=== PATIENT | male | born 1965 | race Caucasian/White ===

== ENCOUNTER 2019-01-13 19:47 | Emergency (ER) | payer BC ==
[2019-01-13] MEDS ORDERED: FENTANYL CITRATE INJ/PF 100 MCG/2 ML AMPUL IV ONE (20:58)
--- NOTE | 2019-01-13 21:06 | ER Document Report ---
ED Medical Screen (RME) - General Chief Complaint: Wound Infection Stated Complaint: POSSIBLE INFECTION AT SURGERY SITE Time Seen by Provider: 01/13/19 20:43 Notes: Patient is a 53-year-old male who presents the emergency department with a conc mehrdad for his surgery sites. On January 02 the patient underwent an aortic aneurysm occlusion surgery at [facility] in which they cleared the occlusion. He also had bilateral femoral and right lower leg occlusions. Patient had stents placed and he is currently on Xarelto. Son, who has been taking care of his wounds state that they feel warm and seem like they are not healing well. The patient is a diabetic. States he has had some chills. Exam: Erythema noted to postop site of right anterior medial lower leg. Unable to visualize patient's bilateral groin surgery sites, as the patient is morbidly obese and in the sitting position. I have greeted and performed a rapid initial assessment of this patient. A comprehensive ED assessment and evaluation of the patient, analysis of test results and completion of medical decision making process will be conducted by an additional ED providers. TRAVEL OUTSIDE OF THE [place] IN LAST 30 DAYS: No - Related Data Allergies/Adverse Reactions: Sulfa (Sulfonamide Antibiotics) Allergy (Verified 01/13/19 20:49) Past Medical History - Social History Chew tobacco use (# tins/day): No Frequency of alcohol use: Rare Drug Abuse: None Endocrine Medical History: Reports: Hx Diabetes Mellitus Type 2 Renal/ Medical History: Denies: Hx Peritoneal Dialysis Past Surgical History: Reports: Hx Appendectomy, Hx Cardiac Catheterization, Hx Cardiac Surgery, Hx Orthopedic Surgery Physical Exam - Vital signs Vitals: Temp Pulse Resp BP Pulse Ox 97.8 F 88 20 115/67 97 01/13/19 20:13 01/13/19 20:13 01/13/19 20:13 01/13/19 20:13 01/13/19 20:13 Course - Vital Signs Vital signs: Temp Pulse Resp BP Pulse Ox 97.8 F 88 20 115/67 97 01/13/19 20:13 01/13/19 20:13 01/13/19 20:13 01/13/19 20:13 01/13/19 20:13
[2019-01-13 21:11] LABS: ABSOLUTE BASOPHILS # (AUTO) 0.2 10^3/uL (0.0-0.2); ABSOLUTE EOSINOPHILS # (AUTO) 0.3 10^3/uL (0.0-0.6); ABSOLUTE LYMPHOCYTES (AUTO) 2.5 10^3/uL (0.5-4.7); ABSOLUTE MONOCYTES (AUTO) 0.7 10^3/uL (0.1-1.4); ABSOLUTE NEUT (AUTO) 9.7 10^3/uL (1.7-8.2); BASOPHILS % (AUTO) 1.2 % (0-2); EOSINOPHILS % (AUTO) 2.5 % (0-6); HEMOGLOBIN 12.6 g/dL (13.5-17.0); LYMPHOCYTES % (AUTO) 18.8 % (13-45); MEAN CORPUSCULAR HEMOGLOBIN 30.9 pg (27.0-33.4); MEAN CORPUSCULAR HGB CONC 34.1 g/dL (32.0-36.0); MEAN CORPUSCULAR VOLUME 91 fl (80-97); PLATELET COUNT 350 10^3/uL (150-450); RED BLOOD COUNT 4.08 10^6/uL (4.35-5.55); SEGMENTED NEUTROPHILS % (AUTO) 72.5 % (42-78); TOTAL CELLS COUNTED % (AUTO) 100 %; WHITE BLOOD COUNT 13.4 10^3/uL (4.0-10.5)
[2019-01-13 21:33] LABS: ALANINE AMINOTRANSFERASE 34 U/L (21-72); ALBUMIN 3.4 g/dL (3.5-5.0); ALKALINE PHOSPHATASE 102 U/L (38-126); ANION GAP 11 (5-19); ASPARTATE AMINO TRANSFERASE 31 U/L (17-59); BILIRUBIN,DIRECT 0.3 mg/dL (0.0-0.4); BILIRUBIN,TOTAL 0.6 mg/dL (0.2-1.3); BLOOD UREA NITROGEN 10 mg/dL (7-20); CALCIUM 9.2 mg/dL (8.4-10.2); CARBON DIOXIDE 20 mmol/L (22-30); CHLORIDE 105 mmol/L (98-107); GLUCOSE 115 mg/dL (75-110); POTASSIUM 4.9 mmol/L (3.6-5.0); TOTAL PROTEIN 7.6 g/dL (6.3-8.2)
--- NOTE | 2019-01-13 23:39 | ER Document Report ---
Addendum entered and electronically signed by JAE HERNANDEZ NP 01/14/19 07:43: Course - Re-evaluation Re-evalutation: 01/14/19 07:42 introduced to patient by torrey hernandez. pt is resting calmly. he was updated on plan of care. waiting on transport team. dilaudid ordered for pain control. - Vital Signs Vital signs: Temp Pulse Resp BP Pulse Ox 98.7 F 88 18 113/67 99 01/14/19 06:16 01/13/19 20:13 01/14/19 07:06 01/14/19 07:06 01/14/19 07:06 - Laboratory Result Diagrams: 01/13/19 21:00 01/13/19 21:00 Laboratory results interpreted by me: 01/13/19 01/13/19 21:00 21:00 WBC 13.4 H RBC 4.08 L Hgb 12.6 L Hct 37.0 L Absolute Neutrophils 9.7 H Sodium 136.3 L Carbon Dioxide 20 L Glucose 115 H Albumin 3.4 L Addendum entered and electronically signed by TORREY HERNANDEZ NP 01/14/19 07:36: Course - Re-evaluation Re-evalutation: 01/14/19 07:36 Patient was reevaluated. Patient sitting up at the side of the bed. Patient h as no acute complaints at this time. Patient is currently awaiting transport, they are estimated to be here at 8:00 this morning. I did do a bedside introduction to my oncoming shift, Gavi Hernandez in case the patient has any needs prior to his departure. At this time he is stable for transport. - Vital Signs Vital signs: Temp Pulse Resp BP Pulse Ox 98.7 F 88 18 113/67 99 01/14/19 06:16 01/13/19 20:13 01/14/19 07:06 01/14/19 07:06 01/14/19 07:06 - Laboratory Result Diagrams: 01/13/19 21:00 01/13/19 21:00 Laboratory results interpreted by me: 01/13/19 01/13/19 21:00 21:00 WBC 13.4 H RBC 4.08 L Hgb 12.6 L Hct 37.0 L Absolute Neutrophils 9.7 H Sodium 136.3 L Carbon Dioxide 20 L Glucose 115 H Albumin 3.4 L Original Note: ED Wound - General Chief Complaint: Wound Infection Stated Complaint: POSSIBLE INFECTION AT SURGERY SITE Time Seen by Provider: 01/13/19 20:43 Mode of Arrival: Wheelchair Information source: Patient, Relative - Son Notes: Patient is a 53-year-old male presents emergency department with chief complaint of possible surgical wound infection. Patient reports he had a repair done to his aorta on 01/02/2019. He reports he had a blockage in the lower part of his aorta as well as bilateral clots to both legs and in the arteries. He states he was discharged from [facility] on 01/08/2019. He states that in the last 48 hours he has had increased drainage with a foul smell from the incisions and he also reports that all sutures have opened up. He denies any fevers, nausea, vomiting, chills. TRAVEL OUTSIDE OF THE [place] IN LAST 30 DAYS: No - Related Data Allergies/Adverse Reactions: Sulfa (Sulfonamide Antibiotics) Allergy (Verified 01/13/19 20:49) Past Medical History - General Information source: Patient - Social History Smoking Status: Former Smoker Chew tobacco use (# tins/day): No Frequency of alcohol use: Rare Drug Abuse: None Family History: Reviewed & Not Pertinent Patient has suicidal ideation: No Patient has homicidal ideation: No Endocrine Medical History: Reports: Hx Diabetes Mellitus Type 2 Renal/ Medical History: Denies: Hx Peritoneal Dialysis Past Surgical History: Reports: Hx Appendectomy, Hx Cardiac Catheterization, Hx Cardiac Surgery, Hx Orthopedic Surgery - Immunizations Immunizations up to date: Yes Review of Systems - Review of Systems Constitutional: No symptoms reported EENT: No symptoms reported Cardiovascular: No symptoms reported Respiratory: No symptoms reported Gastrointestinal: No symptoms reported Genitourinary: No symptoms reported Male Genitourinary: No symptoms reported Musculoskeletal: No symptoms reported Skin: No symptoms reported Hematologic/Lymphatic: See HPI Neurological/Psychological: No symptoms reported Physical Exam - Vital signs Vitals: Temp Pulse Resp BP Pulse Ox 97.8 F 88 20 115/67 97 01/13/19 20:13 01/13/19 20:13 01/13/19 20:13 01/13/19 20:13 01/13/19 20:13 - Notes Notes: PHYSICAL EXAMINATION: GENERAL: Obese male. HEAD: Atraumatic, normocephalic. EYES: Pupils equal round and reactive to light, extraocular movements intact, sclera anicteric, conjunctiva are normal. ENT: Nares patent, oropharynx clear without exudates. Moist mucous membranes. NECK: Normal range of motion, supple without lymphadenopathy LUNGS: Breath sounds clear to auscultation bilaterally and equal. No wheezes rales or rhonchi. HEART: Regular rate and rhythm without murmurs ABDOMEN: Soft, nontender, nondistended abdomen. No guarding, no rebound. No masses appreciated. Musculoskeletal: Normal range of motion, no pitting or edema. No cyanosis. NEUROLOGICAL: Cranial nerves grossly intact. Normal speech. Normal sensory, motor exams PSYCH: Normal mood, normal affect. SKIN: Surgical incision site to left groin mildly dehisced, no surrounding erythema or drainage. Surgical incision site to right groin, dehisced, erythematous, foul-smelling purulent drainage noted. Surgical incision site to right lower extremity over the calf with all sutures broken, surrounding jhoan thema and heat. Course - Re-evaluation Re-evalutation: 01/13/19 23:43 Call placed to [facility] to consult regarding patient's wound infections and wound dehiscence. Orders placed for pain and nausea medications. Orders placed for IV antibiotics and blood cultures. 01/14/19 00:[address] Alonzo Wagner on-call surgical elastic knitter hand frame. Discussed patient's case with him, he believes patient needs to be transferred however I will need to speak with his attending for transfer acceptance. 01/14/19 00:40 Patient accepted for admission by Dr. Isaura Ley, attending surgeon at [facility]. - Vital Signs Vital signs: Temp Pulse Resp BP Pulse Ox 97.8 F 88 11 L 102/46 L 96 01/13/19 20:13 01/13/19 20:13 01/14/19 01:04 01/14/19 01:04 01/14/19 01:04 - Laboratory Result Diagrams: 01/13/19 21:00 01/13/19 21:00 Laboratory results interpreted by me: 01/13/19 01/13/19 21:00 21:00 WBC 13.4 H RBC 4.08 L Hgb 12.6 L Hct 37.0 L Absolute Neutrophils 9.7 H Sodium 136.3 L Carbon Dioxide 20 L Glucose 115 H Albumin 3.4 L Discharge - Discharge Clinical Impression: Wound infection after surgery Leukocytosis Qualifiers: Leukocytosis type: unspecified Qualified Code(s): D72.829 - Elevated white blood cell count, unspecified Condition: Stable Disposition: [facility]
[2019-01-13] MEDS ORDERED: ONDANSETRON HCL INJ/PF 4 MG/2 ML SDV IV ONE (23:40)
[2019-01-13] MEDS ORDERED: CLINDAMYCIN 900 MG/D5W RTU 900 MG/50 ML RTUPB IV ONE (23:41)
[2019-01-14] MEDS: HYDROMORPHONE HCL INJ/PF 2 MG/ML AMPULE IV PRN ×3 (00:01→07:02)
[2019-01-14] MEDS ORDERED: HYDROMORPHONE HCL INJ/PF 2 MG/ML AMPULE IV ONE ×2 (01:15→07:14)
[2019-01-14 08:04] VITALS: BP 113/74
== END 2019-01-14 08:18 | disposition short-term general hospital (02) ==
LOC: ER 19:47
DX: T81.49XA Infection following a procedure, other surgical site, initial encounter (principal); D72.829 Elevated white blood cell count, unspecified; X58.XXXA Exposure to other specified factors, initial encounter; E11.9 Type 2 diabetes mellitus without complications; Z88.2 Allergy status to sulfonamides
CPT/HCPCS: 96376; 99284; 96375; 96365; 36415; 87040; 82962; 85025; 80053; J3010; J3490; J1170; J2405